=== PATIENT | female | born 1950 | race Caucasian/White ===

== ENCOUNTER 2021-09-05 08:20 | Emergency (ER) | payer BC, OTHER ==
[2021-09-05] MEDS ORDERED: LIDOCAINE 5% TOPICAL PATCH TP ONE (08:38)
[2021-09-05 08:58] VITALS: BP 151/101; PULSE 83; TEMP 98.8; BMI 25.7
[2021-09-05] MEDS ORDERED: ACETAMINOPHEN 325 MG TABLET (FP) PO ONE (09:01)
[2021-09-05] MEDS ORDERED: ACETAMINOPHEN 325 MG TABLET (FP) ONE (09:03)
[2021-09-05] MEDS ORDERED: LIDOCAINE 5% TOPICAL PATCH ONE (09:03)
[2021-09-05 09:07] LABS: EPITHELIAL CELLS RARE /hpf
[2021-09-05] MEDS ORDERED: LIDOCAINE PATCH REMOVAL MC SCH (22:00)
== END 2021-09-05 11:07 | disposition home or self-care (01) ==
LOC: FER 08:20
DX: M54.41 Lumbago with sciatica, right side (principal)
CPT/HCPCS: 72170-TC-FY; 81003; 81015; 87086; 99284-25